=== PATIENT | male | born 1955 | race Caucasian/White ===

== ENCOUNTER 2016-08-24 19:39 | Emergency (ER) | payer SELFPAY ==
--- NOTE | 2016-08-24 21:16 | ED ORDER SUMMARY ---
..... Patient: BRANDON JIMENEZ OrderSheet [facility] VisitID: [id number] [address] [place] [address] 61y, M Registration Date/Time: 08/24/2016 ORDER SHEET Weight: 65.7 kg (stated) Allergies: No Known Drug Allergy GENERAL ORDERS: MEDICATION ORDERS: DuoNeb Neb Tx 1 unit dose (NOW) (20:16 08/24/2016 Nicole CORONA) (21:17 Aracelis R.N.) Prednisone PO 60 mg (NOW) (21:16 08/24/2016 Nicole CORONA) (Ack 21:41 HSoule) (22:09 Aracelis R.N.) IV FLUIDS: ORDER SHEET NOTES: [Electronically signed by Chelsea Vera R.N. (22:08/24/2016)] [Electronically signed by Rena Brown MD (07:57 08/29/2016)] [Electronically locked/signed by Chelsea Vera R.N. (22:09 08/24/2016)]
--- NOTE | 2016-08-24 21:16 | ED NURSING NOTES ---
Clinical Report - Nurses [facility] [address] [place] [address] 08/24/2016 19:39 Patient: BRANDON JIMENEZ TRIAGE Triage time 19:47. Acuity: LEVEL 3. Chief Complaint: (sob). --19:52 Oc Sauer R.N. 19:43 08/24/16. BP: 154/84. HR: 79. RR: 20. O2 saturation: 98%. Temp: 97.6 F. Pain level now 0/10. --19:52 Oc Sauer R.N. Weight: 65.7 kg stated. Height/Length: 74 inches Per Patient. BMI: 18.6. --19:52 Oc Sauer R.N. Medication/allergy information source: the patient. --19:52 Oc Sauer R.N. Allergies No Known Drug Allergy. --19:50 Oc Sauer R.N. History Arrived by private vehicle. Historian: patient. Accompanied by friend. Primary physician (Greer Cruz). This started today. ( Pt has been sob since today. Pt has been out of his meds for COPD, Spirva for about a month. Pt has been out of medical insurance. Pt is 99% on room air.). ( Pt has an older list of medications, but has not taken any in a month.). Treatment MEDICAL SALES CONSULTANT: None. SOCIAL HX: Former smoker. History of occasional drug use: marijuana. No alcohol use. --19:52 Oc Sauer R.N. PROBLEMS: Pedal Edema. Immunizations. Hypertension. Laceration. Fall. MRSA Infection. Cellulitis. Hepatitis. Emphysema. COPD - Chronic Obstructive Pulmonary Disease. --19:51 Oc Sauer R.N. Interventions ID band on patient. To treatment room. --19:52 Oc Sauer R.N. NURSING PROGRESS NOTES Pulse oximeter and NIBP monitor placed on patient. Patient gowned. Two patient identifiers checked. Call light placed in reach. Side rails up x 1. Bed placed in lowest position. --19:52 Oc Sauer R.N. ( warm blanket provided to the patient.). --20:24 Mary Lou Soriano 21:05 08/24/16. BP: 138/77. HR: 64. RR: 12. O2 saturation: 97% on room air. Temp: 98.2 F. --21:06 Turner Xavier 20:17 08/24/2016 Duoneb (Ipratropium-Albuterol) Neb TX 1 unit dose given. Given by the respiratory therapist. Allergies verified and confirmed 5 rights. --21:17 Chelsea Vera R.N. 21:08/24/16. BP: 138/77. HR: 64. RR: 12. O2 saturation: 97% on room air. Temp: 98.2 F. --22:06 Chelsea Vera R.N. 21:20 08/24/2016 Prednisone PO 60 mg given. Allergies verified and confirmed 5 rights. --22:09 Chelsea Vera R.N. DISPOSITION / DISCHARGE 21:20. Condition at departure: improved. No learning barriers present. Discharge instructions provided and reviewed with the patient. Reviewed medication(s) side effects, precautions, dosing and course information. Prescription(s) given to the patient. Patient verbalized understanding. Written instructions provided in Ecuadorean. The patient was discharged home and accompanied by mine patrol. He left the Emergency Department ambulatory and via private vehicle. Hydrographic Surveyor driving. Medication list reviewed and validated. --22:05 Chelsea Vera R.N. 21:08/24/16. BP: 138/77. HR: 64. RR: 12. O2 saturation: 97% on room air. Temp: 98.2 F. 19:43 08/24/16. BP: 154/84. HR: 79. RR: 20. O2 saturation: 98%. Temp: 97.6 F. Pain level now 0/10. --22:05 Chelsea Vrea R.N. Locked/Released at 08/24/2016 22:09 by Chelsea Vera R.N.
--- NOTE | 2016-08-24 21:16 | ED CLINICAL REPORT ---
Clinical Report - Physicians/Mid Levels [facility] [address] [place] [address] 08/24/2016 19:39 Patient: BRANDON JIMENEZ Time Seen: 20:16. Arrived- By private vehicle. Historian- patient. HISTORY OF PRESENT ILLNESS Chief Complaint: DYSPNEA and HISTORY OF CHRONIC OBSTRUCTIVE PULMONARY DISEASE. This started today and is still present. The dyspnea is described as mild. No cough, sputum production, fever, sweating episodes or chills. No dyspnea on exertion, chest pain or discomfort, calf pain or foot swelling. No orthopnea, anxiety, dizziness, tingling or numbness. No palpitations. The patient has had mild wheezing. Similar symptoms previously: Recent medical care: Not recently seen/assessed. REVIEW OF SYSTEMS The patient has not had weight loss. No muscle aches, eye irritation, sore throat, nasal discharge or sinus drainage. No nausea, vomiting, abdominal pain, diarrhea or black stools. No bloody stools, headache, fainting episodes, blurred vision or difficulty with urination. No skin rash, enlarged lymph nodes or joint pain. All systems otherwise negative, except as recorded above. PAST HISTORY Problems: Pedal Edema. Immunizations. Hypertension. MRSA Infection. Hepatitis. Emphysema. COPD - Chronic Obstructive Pulmonary Disease. Additional Surgeries: Appendectomy. Left hand. Allergies: No Known Drug Allergy. SOCIAL HISTORY Former smoker. History of drug use: marijuana. No alcohol use. ADDITIONAL NOTES The nursing notes have been reviewed. PHYSICAL EXAM Vital Signs: 08/24/2016 19:44 BP: 154/84. HR: 79. RR: 20. O2 saturation: 98%. Temp: 97.6 F. Have been reviewed. Appearance: Alert. No acute distress. Eyes: Pupils equal, round and reactive to light. Eyes normal inspection. ENT: Nose normal. Neck: Normal inspection. Neck supple. CVS: Normal heart rate and rhythm. Heart sounds normal. Pulses normal. Respiratory: No respiratory distress. Expiratory mild bilateral wheezes diffusely. Abdomen: Soft and nontender. Back: Normal inspection. Skin: Skin warm and dry. Normal skin color. No rash. Normal skin turgor. Extremities: Extremities exhibit normal ROM. No lower extremity edema. Neuro: Oriented X 3. No motor deficit. No sensory deficit. LABS, X-RAYS, AND EKG Pulse Oximetry: 08/24/2016 19:44 O2 saturation: 98%. (FIO2 - room air). Interpretation: normal. PROGRESS AND PROCEDURES Course of Care: PT was treated symptomatically with a duoneb and prednisone, after which he reported feeling better, and declined further treatment. Patient counseled in person regarding the patient's stable condition, diagnosis and need for follow-up. Concerns were addressed. Old medical records reviewed. Disposition: Discharged. Condition: stable and improved. CLINICAL IMPRESSION Acute exacerbation of COPD. INSTRUCTIONS Warnings: GENERAL WARNINGS: Return or contact your physician immediately if your condition worsens or changes unexpectedly, if not improving as expected, or if other problems arise. Prescription Medications: Albuterol HFA oral inhaler: inhale 2 puffs every 4 hours as needed for wheezing, difficulty breathing or shortness of breath. Dispense one (1) unit. No refill. Spiriva HandiHaler: one inhalation every 24 hours. Dispense one (1) package with 1 blister card. No refills. Substitution is permissible. Follow-up: Follow up with your doctor. Call for the next available appointment. Understanding of the discharge instructions verbalized by patient. (Electronically signed by Rena Brown MD 08/29/2016 7:57)
--- NOTE | 2016-08-24 21:16 | ED ORDER SUMMARY ---
..... Patient: BRANDON JIMENEZ OrderSheet [facility] VisitID: [id number] [address] [place] [address] 61y, M Registration Date/Time: 08/24/2016 ORDER SHEET Weight: 65.7 kg (stated) Allergies: No Known Drug Allergy GENERAL ORDERS: MEDICATION ORDERS: DuoNeb Neb Tx 1 unit dose (NOW) (20:16 08/24/2016 Nicole CORONA) (21:17 Aracelis R.N.) Prednisone PO 60 mg (NOW) (21:16 08/24/2016 Nicole CORONA) (Ack 21:41 HSoule) (22:09 Aracelis R.N.) IV FLUIDS: ORDER SHEET NOTES: [Electronically signed by Chelsea Vera R.N. (22:08/24/2016)] [Electronically signed by Rena Brown MD (07:57 08/29/2016)] [Electronically locked/signed by Chelsea Vera R.N. (22:09 08/24/2016)]
--- NOTE | 2016-08-24 21:16 | ED NURSING NOTES ---
Clinical Report - Nurses [facility] [address] [place] [address] 08/24/2016 19:39 Patient: BRANDON JIMENEZ TRIAGE Triage time 19:47. Acuity: LEVEL 3. Chief Complaint: (sob). --19:52 Oc Sauer R.N. 19:43 08/24/16. BP: 154/84. HR: 79. RR: 20. O2 saturation: 98%. Temp: 97.6 F. Pain level now 0/10. --19:52 Oc Sauer R.N. Weight: 65.7 kg stated. Height/Length: 74 inches Per Patient. BMI: 18.6. --19:52 Oc Sauer R.N. Medication/allergy information source: the patient. --19:52 Oc Sauer R.N. Allergies No Known Drug Allergy. --19:50 Oc Sauer R.N. History Arrived by private vehicle. Historian: patient. Accompanied by friend. Primary physician (Greer Cruz). This started today. ( Pt has been sob since today. Pt has been out of his meds for COPD, Spirva for about a month. Pt has been out of medical insurance. Pt is 99% on room air.). ( Pt has an older list of medications, but has not taken any in a month.). Treatment QUALITY INSPECTOR: None. SOCIAL HX: Former smoker. History of occasional drug use: marijuana. No alcohol use. --19:52 Oc Sauer R.N. PROBLEMS: Pedal Edema. Immunizations. Hypertension. Laceration. Fall. MRSA Infection. Cellulitis. Hepatitis. Emphysema. COPD - Chronic Obstructive Pulmonary Disease. --19:51 Oc Sauer R.N. Interventions ID band on patient. To treatment room. --19:52 Oc Sauer R.N. NURSING PROGRESS NOTES Pulse oximeter and NIBP monitor placed on patient. Patient gowned. Two patient identifiers checked. Call light placed in reach. Side rails up x 1. Bed placed in lowest position. --19:52 Oc Sauer R.N. ( warm blanket provided to the patient.). --20:24 Mary Lou Soriano 21:05 08/24/16. BP: 138/77. HR: 64. RR: 12. O2 saturation: 97% on room air. Temp: 98.2 F. --21:06 Turner Xavier 20:17 08/24/2016 Duoneb (Ipratropium-Albuterol) Neb TX 1 unit dose given. Given by the respiratory therapist. Allergies verified and confirmed 5 rights. --21:17 Chelsea Vera R.N. 21:08/24/16. BP: 138/77. HR: 64. RR: 12. O2 saturation: 97% on room air. Temp: 98.2 F. --22:06 Chelsea Vera R.N. 21:20 08/24/2016 Prednisone PO 60 mg given. Allergies verified and confirmed 5 rights. --22:09 Chelsea Vera R.N. DISPOSITION / DISCHARGE 21:20. Condition at departure: improved. No learning barriers present. Discharge instructions provided and reviewed with the patient. Reviewed medication(s) side effects, precautions, dosing and course information. Prescription(s) given to the patient. Patient verbalized understanding. Written instructions provided in [place] Island[place]. The patient was discharged home and accompanied by ambulance dispatcher. He left the Emergency Department ambulatory and via private vehicle. Heat Treat Inspector driving. Medication list reviewed and validated. --22:05 Chelsea Vera R.N. 21:08/24/16. BP: 138/77. HR: 64. RR: 12. O2 saturation: 97% on room air. Temp: 98.2 F. 19:43 08/24/16. BP: 154/84. HR: 79. RR: 20. O2 saturation: 98%. Temp: 97.6 F. Pain level now 0/10. --22:05 Chelsea Vera R.N. Locked/Released at 08/24/2016 22:09 by Chelsea Vera R.N.
--- NOTE | 2016-08-29 07:57 | ED DISCHARGE INSTRUCTIONS ---
Patient: BRANDON JIMENEZ General Instructions [facility] VisitID: [id number] [place] [address] 61y, M Registration Date/Time: 08/24/2016 Acute exacerbation of COPD. INSTRUCTIONS Warnings: GENERAL WARNINGS: Return or contact your physician immediately if your condition worsens or changes unexpectedly, if not improving as expected, or if other problems arise. Prescription Medications: Albuterol HFA oral inhaler: inhale 2 puffs every 4 hours as needed for wheezing, difficulty breathing or shortness of breath. Dispense one (1) unit. No refill. Spiriva HandiHaler: one inhalation every 24 hours. Dispense one (1) package with 1 blister card. No refills. Substitution is permissible. Follow-up: Follow up with your doctor. Call for the next available appointment. Understanding of the discharge instructions verbalized by patient. ADDITIONAL INFORMATION COPD Flare Both emphysema and chronic bronchitis are forms of chronic obstructive pulmonary disease (COPD). It is most often caused by many years of smoking tobacco. Many things can make your lung disease suddenly get worse. These causes include the common cold, pneumonia, acute bronchitis, missing doses of your regular breathing medicines, or being around smoke, dust, or other air pollutants. A COPD flare may last 7 to 14 days. Your doctor may prescribe medicineto relax your airways and prevent wheezing. Your doctor may also prescribe antibiotics if he or she thinks you havea bacterial infection. Prednisone can helpease inflammation in a severe attack. Home care Here are things you can do at home: Drink lots of water or other fluids (at least 10 glasses a day) during an attack. This will loosen lung secretions and make it easier to breathe. If you have heart or kidney disease, check with your doctor before you drink extra amounts of fluids. Take prescribed medicine exactly at the times advised. If you have a hand-held inhaler or aerosol breathing medicine, don't use it more than once every 4 hours, unless your doctor tells you to. If you were givenan antibiotic or prednisone, take all of the medicine even if you are feeling better after a few days. Don't smoke. Avoid being aroundthe smoke of others. If you were given an inhaler, use it exactly as directed. If you need to use it more often than prescribed, your condition may be getting worse. Call your doctor. Follow-up care Follow up with your health care provider.If you are 65 or older or have chronic asthma or COPD, you should get a single dose of the pneumococcal vaccine and aflu shot each year. You may need a second dose of the pneumococcal vaccine if you had the first dose at a younger age. Your health care provider will let you know if you need a second dose. For all other people, the usual dose for the pneumococcal vaccine is 1 or 2 shots. Yourprovider can discuss this with you. When to seek medical care Get prompt medical attention ifany of these occur: Increased wheezing or shortness of breath Need to use your inhalers more often than usual without relief Fever of 100.4F(38C) or higher, or as directed by your health care provider Coughing up lots of dark-colored or bloody sputum (mucus) Chest pain with each breath You do not start to improve within 24 hours You have been given the following additional information: COPD Flare (Electronically signed by Rena Brown MD 08/29/2016 7:57)
--- NOTE | 2016-08-29 07:57 | ED MAR SUMMARY ---
..... Medication Administration Record [facility] [address] [place] [address] Patient: BRANDON JIMENEZ Visit ID: [id number] 61y, M Weight: 65.7 kg Height/Length: 74 in BMI: 18.6 ALLERGIES: No Known Drug Allergy Given 20:17 08/24/2016 Chelsea Vera RJessica. Medication Administered: DUONEB [NEB TX] (IPRATROPIUM-ALBUTEROL), Dose: 1 unit dose Neb TX. Medication Ordered: DuoNeb Neb Tx 1 unit dose (NOW). Given 21:20 08/24/2016 Chelsea Vera RGinnyN. Medication Administered: PREDNISONE [PO], Dose: 60 mg PO. Medication Ordered: Prednisone PO 60 mg (NOW).
--- NOTE | 2016-08-29 07:57 | ED MED RECONCILIATION SUMMARY ---
Patient: BRANDON JIMENEZ Medication Reconciliation Report [facility] VisitID: [id number] [address] [place] [address] 61y, M Registration Date/Time: 08/24/2016 Weight: 65.7 kg Height/Length: 74 in. BMI: 18.6 ALLERGIES: No Known Drug Allergy The patient's Home Medications are listed below: Not obtained. The source(s) of the original Home Medication information: patient The following Medications were given to the patient in the Emergency Department: Duoneb [Neb Tx] Neb TX 1 unit dose, administered: 08/24/2016 8:17:00 PM Prednisone [PO] PO 60 mg, administered: 08/24/2016 9:20:00 PM The following Medications were prescribed to the patient: Albuterol HFA oral inhaler: inhale 2 puffs every 4 hours as needed for wheezing, difficulty breathing or shortness of breath. Dispense one (1) unit. No refill. -- Rena Brown MD Spiriva HandiHaler: one inhalation every 24 hours. Dispense one (1) package with 1 blister card. No refills. Substitution is permissible. -- Rena Brown MD
--- NOTE | 2016-08-29 07:57 | ED MED RECONCILIATION SUMMARY ---
Patient: BRANDON JIMENEZ Medication Reconciliation Report [facility] VisitID: [id number] [address] [place] [address] 61y, M Registration Date/Time: 08/24/2016 Weight: 65.7 kg Height/Length: 74 in. BMI: 18.6 ALLERGIES: No Known Drug Allergy The patient's Home Medications are listed below: Not obtained. The source(s) of the original Home Medication information: patient The following Medications were given to the patient in the Emergency Department: Duoneb [Neb Tx] Neb TX 1 unit dose, administered: 08/24/2016 8:17:00 PM Prednisone [PO] PO 60 mg, administered: 08/24/2016 9:20:00 PM The following Medications were prescribed to the patient: Albuterol HFA oral inhaler: inhale 2 puffs every 4 hours as needed for wheezing, difficulty breathing or shortness of breath. Dispense one (1) unit. No refill. -- Rena Brown MD Spiriva HandiHaler: one inhalation every 24 hours. Dispense one (1) package with 1 blister card. No refills. Substitution is permissible. -- Rena Brown MD
--- NOTE | 2016-08-29 07:57 | ED MAR SUMMARY ---
..... Medication Administration Record [facility] [address] [place] [address] Patient: BRANDON JIMENEZ Visit ID: [id number] 61y, M Weight: 65.7 kg Height/Length: 74 in BMI: 18.6 ALLERGIES: No Known Drug Allergy Given 20:17 08/24/2016 Chelsea Vera RJessica. Medication Administered: DUONEB [NEB TX] (IPRATROPIUM-ALBUTEROL), Dose: 1 unit dose Neb TX. Medication Ordered: DuoNeb Neb Tx 1 unit dose (NOW). Given 21:20 08/24/2016 Chelsea Vera RGinnyN. Medication Administered: PREDNISONE [PO], Dose: 60 mg PO. Medication Ordered: Prednisone PO 60 mg (NOW).
== END 2016-08-24 21:20 | disposition home or self-care (01) ==
LOC: ED SRH 19:39
DX: J44.1 Chronic obstructive pulmonary disease with (acute) exacerbation (principal); I10 Essential (primary) hypertension; Z87.891 Personal history of nicotine dependence